=== PATIENT | male | born 1985 | race Caucasian/White ===

== ENCOUNTER 2025-05-17 10:28 | Emergency (ER) | payer OTHER, SELFPAY ==
[2025-05-17 10:37] VITALS: BP 147/91; PULSE 83; RESP 20; TEMP 35.5; O2SAT 96; BMI 54.7
--- NOTE | 2025-05-17 11:12 | ED_ITS ---
HPI - General Adult General Chief complaint: Jaw Injury/Pain Stated complaint: Jaw swelling Time Seen by Provider: 05/17/25 11:04 History of Present Illness HPI narrative: This 39-year-old male comes in with lower front teeth pain and jaw pain. This is been present for several days. 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 He did not fill the antibiotic and has been taking ibuprofen. He comes in here with worsening pain. Related Data Home Medications ?Medication ?Instructions ?Recorded ?Confirmed No Known Home Medications 05/17/25 12 Allergies Allergy/AdvReac Type Severity Reaction Status Date / Time Penicillins Allergy Intermediate Hives Verified 05/17/25 10:42 Review of Systems Status of ROS: Reports: 10 or more systems reviewed and unremarkable except as noted in History and below Narrative: Constitutional: No fevers, no weight gain or loss. Eyes: No discharge. No vision changes. HENT: No congestion, no sore throat, no ear pain. Teeth and jaw pain as described above. Cardiovascular: No chest pain, no palpitations. Respiratory: No shortness of breath, no wheezes, no cough. Gastrointestinal: No abdominal pain, no vomiting, no diarrhea. Genitourinary: No dysuria, no hematuria. Musculoskeletal: Normal range of motion. Skin: No rashes, no pruritis. Neurological: No dizziness, weakness, sensory change, speech change. Endo/Heme/Allergies: No bruising or bleeding. No polydipsia. All other systems reviewed and are negative. PFSH PFS Social History Smoking Status: Current every day smoker What tobacco products do you use: cigars Do you use any of these nicotine containing products: None How often do you have a drink containing alcohol: never AUDIT-C Alcohol total score: 0 Non-prescribed substance use: denies use Exam Narrative: Exam Narrative: Constitutional: Well-developed, well-nourished, no acute distress. HEENT: Normocephalic, atraumatic. Fair dentition with no sign of abscess visually. Neck: Normal range of motion. Nontender. Supple. Heart: Intact distal pulses. Lungs: No chest discomfort. No wheezes, rhonchi, or rales. Abdomen: Nontender. Back: Normal range of motion. Extremities: Normal range of motion. No injury. Skin: Intact. No rash. Warm. No erythema or pallor. Neurologic: No altered sensation. No weakness. Alert and oriented. Psychiatric: No suicidality. No anxiety or depression. No insomnia. Nursing notes and vitals signs are reviewed. Const: Vital Signs, click to edit/add: Vital Signs - 24 hr 05/17/25 10:37 Temperature 96 F L Pulse Rate [Pulse Oximeter] 83 Respiratory Rate 20 Blood Pressure [Ri ght Upper Arm] 147/91 H Pulse Oximetry 96 Oxygen Delivery Me thod Room Air Course Vital Signs Vital signs: Initial Vital Signs Temperature 96 F L 05/17/25 10:37 Temperature Source Temporal Artery Scan 05/17/25 10:37 Pulse Rate 83 05/17/25 10:37 Respiratory Rate 20 05/17/25 10:37 Blood Pressure 147/91 H 05/17/25 10:37 Blood Pressure Mean 109 H 05/17/25 10:37 Blood Pressure Position Sitting 05/17/25 10:37 Pulse Oximetry 96 05/17/25 10:37 Oxygen Delivery Method Room Air 05/17/25 10:37 Vital Signs Temperature 96 F L 05/17/25 10:37 Pulse Rate 83 05/17/25 10:37 Respiratory Rate 20 05/17/25 10:37 Blood Pressure 147/91 H 05/17/25 10:37 Pulse Oximetry 96 05/17/25 10:37 Oxygen Delivery Method Room Air 05/17/25 10:37 Temperature 96 F L 05/17/25 10:37 Pulse Rate 83 05/17/25 10:37 Respiratory Rate 20 05/17/25 10:37 Blood Pressure 147/91 H 05/17/25 10:37 Pulse Oximetry 96 05/17/25 10:37 Oxygen Delivery Method Room Air 05/17/25 10:37 Medical Decision Making MDM Narrative Medical decision making narrative: This patient comes in with dental pain and is hoping to get back to floor to where he can see a dentist. He reports that x-ray was done at a different emergency room which identified evidence of abscess around his teeth. Externally there is no sign of abscess that could be drained. The patient is interested in a dental nerve block which was administered with bupivacaine to block the inferior alveolar nerve on the right side. I did provide [facility] prescriptions for doxycycline and Toradol. Discharge Plan Discharge Clinical Impression: Abscess, dental Patient Disposition: Home, Self-Care Condition: Stable Additional Instructions: Take medications as prescribed. Follow-up with dentist as soon as possible for further evaluation and treatment. Prescriptions: No Action No Known Home Medications Follow Up/Referrals: Provider,Not a Local [Primary Care Provider, Family Practice] Stand Alone Forms: [facility] Info Instructions
[2025-05-17] MEDS: BUPIVACAINE 0.25% 30 ML INJECTION (11:49)
--- OUTSIDE RECORDS SUMMARY | 2025-05-17 11:57 | XMS_ITS | Patient Health Record ---
Author Organization Jose Daniel MAKI M, [facility] Address [address] [place], [place] [id number] Care Team Providers Care Field Case Manager Name Role Phone SALEEM Sam Primary Care Provider Unavail Jose Daniel Peoples Unavailable [phone] Allergies Allergen (clinical drug ingredient) Drug/Non Drug Allergy documented on EMR Reaction Allergy Type Onset Date Status PenicillinUnknownDrug AllergyActive Reason For Referral No Information Social History Tobacco Use: Social History Observation Description Date Details (start date - stop date) Former Smoker NA - NA smoking Question Answer Notes Are you a: former smoker Additional Findings: Tobacco Non-UserCurrent non-smokerAlcohol Question Answer Notes Did you have a drink containing alcohol in the p ast year? No InterpretationNegative Plan Of Treatment No Information Insurance Providers Payer Name Payer Address Payer Phone Subscriber Number Group Number Insured Name Patient Relationship to Insured Coverage Start Date Coverage End Date [employer] [address] [place], [place] [address] [id number] Neftali Josephelf - patient is the insured Medical (General) History Surgical History Surgery Date(Month/Year) Tonsillectomy 2002
== END 2025-05-17 11:53 | disposition home or self-care (01) ==
PROVIDERS: Emergency Provider Emergency Medicine Emergency Medical Services
DX: K04.7 Periapical abscess without sinus (principal); F17.290 Nicotine dependence, other tobacco product, uncomplicated
CPT/HCPCS: 64405; 99284; J0665